=== PATIENT | female | born 1985 | race Caucasian/White ===

== ENCOUNTER 2016-10-17 05:02 | Emergency (ER) | payer SELFPAY ==
[~2016-10-17] VITALS: Ht 154.9 cm; Wt 112.5 kg
[~2016-10-17 05:02] MED LIST: PREN1TAB49 PO
[2016-10-17 05:05] VITALS: Ht 154.9 cm; Wt 112.5 kg
[2016-10-17] MEDS ORDERED: ACETAMINOPHEN 325 MG TAB PO STA (06:21)
[2016-10-17] MEDS ORDERED: FAMOTIDINE 20 MG TAB PO ONE (06:30)
--- NOTE | 2016-10-17 06:38 | ERD ---
ER Documentation Chief Complaint Date/Time DATE: 10/17/16 TIME: 06:36 Chief Complaint AP since 0400 yesterday, N/V. denies diarrhea. 6 week HPI This is a 31-year-old female who presents emergency department for epigastric abdominal pain 2 hours. Patient states she is currently 6 weeks . Patient is a G4, . Patient woke up experiencing epigastric pain denies lower. Pelvic or abdominal pain. No vaginal bleeding. No vaginal discharge or itching. No dysuria, hematuria or difficulty urinating. No fevers or chills. Patient has had nausea however no vomiting or diarrhea. No chest pain , shortness of breath or difficulty breathing. ROS All systems reviewed and are negative except as per history of present illness. Medications Home Meds Active Scripts Famotidine* (Pepcid*) 20 Mg Tablet, 20 MG PO BID for 4 Days, TAB Prov:DAVID PHILLIPS NP 10/17/16 Nitrofurantoin Monohyd Macrocr* (Macrobid*) 100 Mg Capsr, 100 MG PO BID for 5 Days, CAP Prov:DAVID PHILLIPS NP 10/17/16 Reported Medications Vits W-Ca,Fe,Fa(<1MG) () 1 Tab Tablet, PO DAILY 12/24/11 Allergies Allergies: Coded Allergies: No Known Allergy (Verified , 02/20/14) PMhx/Soc History of Surgery: No Anesthesia Reaction: No Hx Neurological Disorder: No Hx Respiratory Disorders: No Hx Cardiac Disorders: No Hx Psychiatric Problems: No Hx Miscellaneous Medical Probl: Yes (gallstones) Hx Alcohol Use: No Hx Substance Use: No Hx Tobacco Use: No Smoking Status: Never smoker Physical Exam Vitals Vital Signs Date Time Temp Pulse Resp B/P Pulse Ox O2 Delivery O2 Flow Rate FiO2 10/17/16 05:05 98.9 89 20 131/83 99 Physical Exam Const: No acute distress, alert Head: Atraumatic Eyes: Normal Conjunctiva ENT: Normal External Ears, Nose and Mouth. Neck: Full range of motion..~ No meningismus. Resp: Clear to auscultation bilaterally. No wheezing, rhonchi or crackles Cardio: Regular rate and rhythm, no murmurs Abd: Soft, non tender, non distended. Normal bowel sounds. No suprapubic tenderness. Negative Gonzalez sign. Skin: No petechiae or rashes Back: No midline or flank tenderness Ext: No cyanosis, or edema Neur: Awake and alert Psych: Normal Mood and Affect Result Diagram: 10/17/16 0645 10/17/16 0645 Results 24 hrs Laboratory Tests Test 10/17/16 06:45 10/17/16 06:55 White Blood Count 7.110^3/ul Red Blood Count 4.3410^6/ul Hemoglobin 12.8g/dl Hematocrit 38.1% Mean Corpuscular Volume 87.8fl Mean Corpuscular Hemoglobin 29.5pg Mean Corpuscular Hemoglobin Concent 33.6g/dl Red Cell Distribution Width 12.7% Platelet Count 06075^3/UL Mean Platelet Volume 11.1fl Neutrophils % 49.3% Lymphocytes % 40.6% Monocytes % 8.6% Eosinophils % 0.8% Basophils % 0.3% Nucleated Red Blood Cells % 0.0/100WBC Neutrophils # 3.510^3/ul Lymphocytes # 2.910^3/ul Monocytes # 0.610^3/ul Eosinophils # 0.110^3/ul Basophils # 0.010^3/ul Nucleated Red Blood Cells # 0.010^3/ul Sodium Level 136mmol/L Potassium Level 3.7mmol/L Chloride Level 109mmol/L Carbon Dioxide Level 20mmol/L Anion Gap 11 Blood Urea Nitrogen 12mg/dl Creatinine 0.49mg/dl Glucose Level 97mg/dl Calcium Level 8.5mg/dl Total Bilirubin 0.1mg/dl Direct Bilirubin 0.00mg/dl Indirect Bilirubin 0.1mg/dl Aspartate Amino Transf (AST/SGOT) 34IU/L Alanine Aminotransferase (ALT/SGPT) 45IU/L Alkaline Phosphatase 89IU/L Total Protein 7.5g/dl Albumin 3.8g/dl Globulin 3.70g/dl Albumin/Globulin Ratio 1.02 Beta HCG, Quantitative 555.2mIU/ml Bedside Urine pH (LAB) 6.5 Bedside Urine Protein (LAB) Negative Bedside Urine Glucose (UA) Negative Bedside Urine Ketones (LAB) Negative Bedside Urine Blood Negative Bedside Urine Nitrite (LAB) Negative Bedside Urine Leukocyte Esterase (L 1+ Current Medications Medications (Trade) Dose Ordered Sig/Lina Route PRN Reason Start Time Stop Time Status Last Admin Dose Admin Acetaminophen (Tylenol Tab) 650 mg ONCE STAT PO 10/17/16 06:21 10/17/16 06:24 DC 10/17/16 06:50 Famotidine (Pepcid) 20 mg ONCE ONCE PO 10/17/16 06:30 10/17/16 06:31 DC 10/17/16 06:50 Procedures/MDM ED COURSE: The patient was stable throughout ED course. I kept the patient and/or family informed of laboratory and diagnostic imaging results throughout the ED course. Laboratory CBC no significant anemia or infection CMP no significant electrolyte amount Beta-hCG 555.2 Type and Rh factor Urine dip 1+ leukocyte [facility] OB ultrasound Patient: CHERRI GARCÍA : 1985 Age: 31 Sex: F MR #: [id number] DOS: 10/17/16620 Ordering MD: DAVID PHILLIPS NP Location: [facility] Room/Bed: PROCEDURE: ULTRASOUND PELVIS CLINICAL INDICATION: 31-year-old female with vaginal bleeding. TECHNIQUE: Multiple sonographic images of the pelvis were obtained utilizing a transabdominal and endovaginal technique. The images were reviewed on a PACS workstation. COMPARISON: None. FINDINGS: The uterus is visualized and measures 10.6 x 6.0 x 6 point a cm. The endometrial echo complex is thickened and measures approximately 25 mm. There is no sonographic evidence for a viable intrauterine gestation. There is a small hypoechoic focus measuring approximately 2 x 2 mm. There is mild free fluid within the cul-de-sac. The right ovary was not visualized. The left ovary has a normal echotexture and measures 2.6 x 1.3 x 1.5 cm. There is flow identified within the left ovary. No adnexal masses are noted. IMPRESSION: 1. Thickened endometrial echo complex with small hypoechoic focus within it without sonographic evidence for a viable intrauterine gestation. This may represent an early gestation or missed . An ectopic cannot be totally excluded. Clinical correlation is necessary. 2. Mild pelvic free fluid. 3. The right ovary was not visualized. Ultrasound gallbladder Patient: CHERRI GARCÍA : 1985 Age: 31 Sex: F MR #: [id number] DOS: 10/17/1638 Ordering MD: DAVID PHILLIPS NP Location: [facility] Room/Bed: PROCEDURE: ULTRASOUND LIMITED ABDOMEN CLINICAL INDICATION: 31-year-old female with abdominal pain. TECHNIQUE: Multiple sonographic of the right upper quadrant of the abdomen were obtained. The images were reviewed on a PACS workstation. COMPARISON: None. FINDINGS: The pancreas is not well visualized secondary to overlying bowel gas. The liver displays normal echogenicity. The liver measures cm in length. No evidence of intrahepatic biliary ductal dilatation is seen. The portal and hepatic veins are unremarkable. The gallbladder contains multiple shadowing stones. The gallbladder wall thickness is within normal limits measuring 0.8 mm. No pericholecystic fluid is seen. The common bile duct measures 4.5 mm and is not dilated. The right kidney displays normal echogenicity. The right kidney measures 10.1 cm in maximal length. No caliectasis or hydronephrosis is seen. No free fluid is seen. IMPRESSION: Cholelithiasis. MDM: This is a 31-year-old female presenting to emergency department for epigastric abdominal pain 2 hours. Patient is currently 6 weeks with last menstrual period 08/31/2016. Currently, no lower abdominal pain, pelvic pain, vaginal bleeding or pelvic cramping. Patient has nausea however no vomiting. No diarrhea. No dysuria or hematuria. Patient given Tylenol and Pepcid while in the ED. Remains afebrile and vital signs are stable. No vaginal bleeding. Gallbladder ultrasound reviewed by radiologist as cholelithiasis. OB ultrasound reviewed by radiologist as Thickened endometrial echo complex with small hypoechoic focus within it without sonographic evidence for a viable intrauterine gestation. This may represent an early gestation or missed . An ectopic cannot be totally excluded. Clinical correlation is necessary. Mild pelvic free fluid. The right ovary was not visualized. Labs are unremarkable. Urine dip shows 1+ leukocyte esterase. Beta-hCG 555.2. Discussed findings with on-call labor is Dr. Castle. We agree that patient is appropriate for outpatient management and can return to ED in 2 days for repeat lab draw and ultrasound. Patient instructed to make appointment with OBGYN for follow up after ED care. Resources provided. Differential diagnosis includes but not limited to GERD, gastritis, peptic ulcer disease, cholelithiasis, ectopic , early , missed and normal . Low suspicion for cholecystitis, bowel obstruction, pyelonephritis and sepsis. Patient is appropriate for outpatient management will be given prescription for Macrobid and Pepcid. Instructed patient to return to ED in 2 days for repeat blood draw and ultrasound. Return sooner for any vaginal bleeding, pelvic pain , fever, chest pain, shortness breath, difficulty breathing, abdominal pain or any new or worsening symptoms. Patient verbalized understanding. All questions answered at discharge. Slovak translation use during this encounter. Departure Diagnosis: Primary Impression: Abdominal pain Abdominal location: epigastric Qualified Code: R10.13 - Epigastric pain Additional Impression: Weeks of gestation: less than 8 weeks Qualified Code: Z3A.01 - Less than 8 weeks gestation of Condition: Stable DAVID PHILLIPS NP Oct 17, 2016 06:38
[2016-10-17 06:54] LABS: ADD SCAN DIFF NO
[2016-10-17 06:56] LABS: URINE BLOOD (Dip) POC Negative (NEGATIVE)
[2016-10-17 07:05] LABS: BASOPHILS % 0.3 % (0.0-2.0); EOSINOPHILS # 0.1 10^3/ul (0.0-0.5); EOSINOPHILS % 0.8 % (0.0-7.0); HEMATOCRIT 38.1 % (37.0-47.0); HEMOGLOBIN 12.8 g/dl (12.0-16.0); LYMPHOCYTES # 2.9 10^3/ul (0.8-2.9); LYMPHOCYTES % 40.6 % (15.0-51.0); MEAN CORPUSCULAR HEMOGLOBIN 29.5 pg (29.0-33.0); MEAN CORPUSCULAR HGB CONC 33.6 g/dl (32.0-37.0); MEAN CORPUSCULAR VOLUME 87.8 fl (82.0-101.0); MEAN PLATELET VOLUME 11.1 fl (7.4-10.4); MONOCYTE # 0.6 10^3/ul (0.3-0.9); MONOCYTES % 8.6 % (0.0-11.0); NEUTROPHIL # 3.5 10^3/ul (1.6-7.5); NEUTROPHILS % 49.3 % (39.0-77.0); PLATELET COUNT 287 10^3/UL (140-415); RED BLOOD COUNT 4.34 10^6/ul (4.20-5.40); RED CELL DISTRIBUTION WIDTH 12.7 % (11.5-14.5); WHITE BLOOD COUNT 7.1 10^3/ul (4.8-10.8)
--- NOTE | 2016-10-17 07:20 | RADRPT ---
PROCEDURE: ULTRASOUND LIMITED ABDOMEN CLINICAL INDICATION: 31-year-old female with abdominal pain. TECHNIQUE: Multiple sonographic of the right upper quadrant of the abdomen were obtained. The imag es were reviewed on a PACS workstation. COMPARISON: None. FINDINGS: The pancreas is not well visualized secondary to overlying bowel gas. The liver displays normal echogenicity. The liver measures cm in length. No evidence of intrahepat ic biliary ductal dilatation is seen. The portal and hepatic veins are unremarkable. The gallbladder contains multiple shadowing stones. The gallbladder wall thickness is within normal limits measuring 0.8 mm. No pericholecystic fluid is seen. The common bile duct measures 4.5 mm and is not dilated. The right kidney displays normal echogenicity. The right kidney measures 10.1 cm in maximal length. No caliectasis or hydronephrosis is seen. No free fluid is seen. IMPRESSION: Cholelithiasis. .Serg Henley MD, MD Date Time Electronically viewed and signed by .Serg Henley MD, on 10/17/2016 07:19 .M/
--- NOTE | 2016-10-17 07:53 | RADRPT ---
PROCEDURE: ULTRASOUND PELVIS CLINICAL INDICATION: 31-year-old female with vaginal bleeding. TECHNIQUE: Multiple sonographic images of the pelvis were obtained utilizing a transabdominal and endovaginal technique. The images were reviewed on a PACS workstation. COMPARISON: None. FINDINGS: The uterus is visualized and measures 10.6 x 6.0 x 6 point a cm. The endometrial echo complex is thi ckened and measures approximately 25 mm. There is no sonographic evidence for a viable intrauterine gestation. There is a small hypoechoic focus measuring approximately 2 x 2 mm. There is mild free fl uid within the cul-de-sac. The right ovary was not visualized. The left ovary has a normal echotext ure and measures 2.6 x 1.3 x 1.5 cm. There is flow identified within the left ovary. No adnexal ma sses are noted. IMPRESSION: 1. Thickened endometrial echo complex with small hypoechoic focus within it without sonographic adonis dence for a viable intrauterine gestation. This may represent an early gestation or missed . An ectopic cannot be totally excluded. Clinical correlation is necessary. 2. Mild pelvic free fluid. 3. The right ovary was not visualized. .Serg Henley MD, Date Time Electronically viewed and signed by .Serg Henley MD, on 10/17/2016 07:53 .Vern/
[2016-10-17 09:17] LABS: ALBUMIN 3.8 g/dl (3.3-4.9); ALBUMIN/GLOBULIN RATIO 1.02; BILIRUBIN,INDIRECT 0.1 mg/dl (0-1.1); BILIRUBIN,TOTAL 0.1 mg/dl (0.2-1.3); CALCIUM 8.5 mg/dl (8.4-10.2); CREATININE 0.49 mg/dl (0.44-1.00); POTASSIUM 3.7 mmol/L (3.5-5.1); TOTAL PROTEIN 7.5 g/dl (6.1-8.1)
[2016-10-17] MEDS ORDERED: NITR-58 PO (10:54)
[2016-10-17] MEDS ORDERED: FAMO-18 PO (10:54)
[2016-10-17 11:11] VITALS: BP 118/64; PULSE 75; RESP 19; TEMP 98.4
== END 2016-10-17 11:12 | disposition home or self-care (01) ==
LOC: FTE 05:02
DX: O26.891 Other specified pregnancy related conditions, first trimester (principal); R10.13 Epigastric pain; R10.2 Pelvic and perineal pain; Z3A.01 Less than 8 weeks gestation of pregnancy
CPT/HCPCS: 36415; 76705; 76801; 76817; 80053; 81003; 84702; 85025; 86900; 86901

== ENCOUNTER 2017-06-16 10:32 | Inpatient (IN) | payer MEDICAID ==
[~2017-06-16] VITALS: Ht 160 cm; Wt 109.3 kg
[~2017-06-16 10:32] MED LIST changes: +FAMO-96 PO; +NITR-58 PO
[2017-06-16 11:21] VITALS: Ht 160 cm; Wt 109.3 kg
[2017-06-16 11:29] VITALS: BP 131/77; RESP 16
[2017-06-16] MEDS ORDERED: OXYTOCIN 30 UNITS/LR 500 ML IV SCH ×3 (11:30)
[2017-06-16] MEDS ORDERED: OXYTOCIN 30 UNITS/LR 500 ML IV PRN (11:30)
[2017-06-16] MEDS ORDERED: METHYLERGONOVINE 0.2 MG INJ IM PRN (11:30)
[2017-06-16] MEDS ORDERED: CARBOPROST 250 MCG INJ IM PRN (11:30)
[2017-06-16] MEDS ORDERED: BUTORPHANOL 2 MG INJ IV PRN (11:30)
[2017-06-16] MEDS ORDERED: LIDOCAINE 1% (MPF) 30 ML INJ INJ PRN (11:30)
[2017-06-16] MEDS ORDERED: MISOPROSTOL 200 MCG TAB PR PRN (11:30)
[2017-06-16] MEDS ORDERED: MINERAL OIL LIGHT 10 ML VIAL TOP ONE (11:30)
[2017-06-16 12:12] LABS: BASOPHILS % 0.2 % (0.0-2.0); EOSINOPHILS % 0.2 % (0.0-7.0); HEMATOCRIT 32.5 % (37.0-47.0); HEMOGLOBIN 10.9 g/dl (12.0-16.0); LYMPHOCYTES # 2.4 10^3/ul (0.8-2.9); LYMPHOCYTES % 25.6 % (15.0-51.0); MEAN CORPUSCULAR HEMOGLOBIN 26.7 pg (29.0-33.0); MEAN CORPUSCULAR HGB CONC 33.5 g/dl (32.0-37.0); MEAN CORPUSCULAR VOLUME 79.5 fl (82.0-101.0); MEAN PLATELET VOLUME 11.5 fl (7.4-10.4); MONOCYTE # 0.6 10^3/ul (0.3-0.9); MONOCYTES % 6.5 % (0.0-11.0); NEUTROPHIL # 6.2 10^3/ul (1.6-7.5); NEUTROPHILS % 67.2 % (39.0-77.0); PLATELET COUNT 302 10^3/UL (140-415); RED BLOOD COUNT 4.09 10^6/ul (4.20-5.40); WHITE BLOOD COUNT 9.2 10^3/ul (4.8-10.8)
[2017-06-16 12:36] LABS: INR 0.92; PROTIME 12.4 Sec (11.9-14.9)
[2017-06-16] MEDS: LACTATED RINGER'S 1,000 ML IV SCH ×3 (12:41→20:20)
--- NOTE | 2017-06-16 17:27 | HP ---
Date/Time of Note Date/Time of Note DATE: 06/16/17 TIME: 17:13 OB - History Hx of Present Free Text/Dictation 32 years old female admitted to the hospital with referral from NST unit due to low JACQUES 6.8 at 39 weeks and 5 days recommended delivery which required labor augmentation was discussed with her questions answered and her labor would be augmented with Pitocin IV infusion drip, a pelvic examination on admission cervix 2-3 cm dilated 40% effaced vertex at -2 station with mild contractions every 1-3 minutes. Category 1 heart tracing Chief Complaint: Referred from NST because of low JACQUES mild contraction for labor augmentatio Estimated Due Date: Jun 18, 2017 : 4 Para: 3 Care: Good Care Ultrasounds: Normal mid trimester US Obstetrical Complications: None Medical Complications: None Past Family/Social History * Past Medical, Surgical, Family and Obstetric Histories reviewed from chart. Rubella: immune RPR/VDRL: Negative GBS Status: Negative HBsAG: Negative OB Admission Exam Vital Signs Vital Signs Vital Signs Date Time Temp Pulse Resp B/P Pulse Ox O2 Delivery O2 Flow Rate FiO2 06/16/17 11:29 97.6 16 131/77 Room Air Physical Exam HEENT: WNL Heart: Rhythm Normal Lungs: Clear, Equal Abdomen: WNL Extremities: Normal Reflexes: Normal Cervical Dilatation: 3cm Effacement: Other (40% effacement) Station: -2 Membranes: Intact Amniotic Fluid: Other (Intact membrane) Heart Rate: 130's Accelerations: Accelerations Present Decelerations: No Decelerations Varibility: Moderate Contractions on Admission: >10 Minutes Apart Intensity: Mild Last 72 hours Lab Results CBC & BMP 06/16/17 11:40 OB Assessment/Plan Reason for admission: other (39 weeks 5 days , referred from NST due to low JACQUES very early labor required labor augmentation) ADRIENNE GREENE MD Jun 16, 2017 17:24
[2017-06-16] MEDS ORDERED: ONDANSETRON 4 MG INJ IV STA (20:05)
[2017-06-16] MEDS ORDERED: FENTAnyl 2MCG/ML-ROPIV 0.2% 100 ML ONE (20:20)
[2017-06-16] MEDS ORDERED: CITRIC ACID/SODIUM CITRATE 15 ML CUP PO ONE (20:30)
[2017-06-16] MEDS ORDERED: NALOXONE (0.4 MG/ML) INJ IV PRN (21:30)
[2017-06-16] MEDS ORDERED: FENTAnyl 2MCG/ML-ROPIV 0.2% 100 ML BAG EPI SCH (21:30)
[2017-06-16] MEDS ORDERED: DIPHENHYDRAMINE 50 MG INJ IV PRN (21:30)
[2017-06-16] MEDS ORDERED: TRIMETHOBENZAMIDE 100 MG/ML VIAL IM PRN (21:30)
[2017-06-16] MEDS ORDERED: ONDANSETRON 4 MG INJ IV PRN (21:30)
[2017-06-17] MEDS: LACTATED RINGER'S 1,000 ML IV SCH (01:06)
[2017-06-17] MEDS: LACTATED RINGER'S 1,000 ML IV* SCH ×2 (01:44→05:18)
--- NOTE | 2017-06-17 01:44 | LDN ---
Date/Time of Note Date/Time of Note DATE: 06/17/17 TIME: 01:43 Delivery Summary Called for delivery due to nonavailability of primary OB attending. Patient was complete and pushing Weeks of Gestation Full-term Placenta Delivered: Spontaneously Meconium: none Episiotomy: No Perineal laceration: 0 Laceration repair: No perineal laceration. Anesthesia type: Epidural Sponge & Needle done & correct: Yes All needle counts correct: Yes Any foreign bodies felt in the: No Problems: Infant Delivery Information Sex Infant Sex: male Apgars 1 Minute: 9 5 Minute: 9 Suctioning Nose & mouth suctioned at yomi: Yes Delee suction performed: Yes Umbilical Cord Umbilical cord with: 3 Vessels Cord presentations: no nuchal cord Cord Blood was obtained: Yes MANUEL GOLDEN MD Jun 17, 2017 01:44
[2017-06-17] MEDS ORDERED: ACETAMINOPHEN 325 MG TAB PO PRN (02:00)
[2017-06-17] MEDS ORDERED: LANOLIN 7 GM TUBE TOP PRN (02:00)
[2017-06-17] MEDS ORDERED: DIPHENHYDRAMINE 25 MG CAP PO PRN (02:00)
[2017-06-17] MEDS ORDERED: CARBOPROST 250 MCG INJ IM PRN (02:00)
[2017-06-17] MEDS ORDERED: HYDROCODONE/APAP (5/325) TAB PO PRN (02:00)
[2017-06-17] MEDS ORDERED: MISOPROSTOL 200 MCG TAB PR PRN (02:00)
[2017-06-17] MEDS ORDERED: ZOLPIDEM 5 MG TAB PO PRN (02:00)
[2017-06-17] MEDS ORDERED: OXYTOCIN 30 UNITS/LR 500 ML IV PRN (02:00)
[2017-06-17] MEDS ORDERED: METHYLERGONOVINE 0.2 MG INJ IM PRN (02:00)
[2017-06-17] MEDS ORDERED: ONDANSETRON 4 MG INJ IV PRN (02:00)
[2017-06-17] MEDS: IBUPROFEN 600 MG TAB PO SCH ×4 (05:34→23:58)
[2017-06-17] MEDS: WITCH HAZEL/GLYCERIN PAD PR PRN ×2 (05:35→05:37)
[2017-06-17 08:00] VITALS: BP 120/73
[2017-06-17] MEDS: SENNA/DOCUSATE NA (8.6MG/50MG) TAB PO SCH ×2 (08:39→21:28)
[2017-06-17] MEDS: NITROFURANTOIN (SR) 100 MG CAP PO SCH ×2 (08:39→21:27)
[2017-06-17 09:27] LABS: HEMATOCRIT 32.6 % (37.0-47.0)
[2017-06-17 12:21] VITALS: BP 118/62; RESP 18
[2017-06-17 13:28] LABS: ADD UMIC YES; UR ASCORBIC ACID NEGATIVE (NEGATIVE); UR BACTERIA MODERATE /HPF (NONE SEEN); UR BILIRUBIN (Dip) NEGATIVE (NEGATIVE); UR BLOOD (Dip) 3+ mg/dL (NEGATIVE); UR CLARITY CLOUDY (CLEAR); UR COLOR RED (YELLOW); UR GLUCOSE (Dip) NEGATIVE (NEGATIVE); UR KETONES (Dip) TRACE mg/dL (NEGATIVE); UR LEUKOCYTE ESTERASE (Dip) 2+ Leu/ul (NEGATIVE); UR MUCUS MODERATE /HPF (NONE SEEN); UR NITRITE (Dip) NEGATIVE (NEGATIVE); UR RBC > 182 /HPF (0-5); UR SPECIFIC GRAVITY (Dip) 1.014 (1.003-1.030); UR SQUAMOUS EPITHELIAL CELL FEW /HPF (FEW); UR TOTAL PROTEIN (Dip) 2+ mg/dl (NEGATIVE); UR UROBILINOGEN (Dip) 2+ mg/dL (NEGATIVE)
[2017-06-17 15:49] VITALS: BP 115/62; RESP 20
[2017-06-17 20:00] VITALS: BP 114/58; PULSE 74; RESP 18
--- NOTE | 2017-06-17 23:16 | NSTRPT ---
NST Information Datetime Report Generated by CPN: 06/17/2017 23:16 Datetime: 06/16/2017 09:30 NST Information EGA: 39.5 Test Number: 2 Time on Monitor: 06/16/2017 09:46 Time off Monitor: 06/16/2017 10:16 NST Duration (Min): 30 Reason for NST: Oligohydramnios Test and Monitor Explained: Monitor Explained; Test Explained; Verbalized Understanding; Breastfee ding Info Given Pulse: 100 Resp: 18 SBP: 132 DBP: 76 Test Evaluation NST Interventions: None Patient States Movement: Present Contraction Frequency: NONE FHR Baseline : 140 Variability: Moderate 6-25bpm Accelerations: 15X15 Decelerations: None FHR Category: Category I NST Results: Reactive Comments: PT TO U/S JACQUES 6.2cm. CEPHALIC. Electronically Signed By E-Signature: with User ID: [id number] Datetime: 06/09/2017 09:42 NST Information EGA: 38.5 Datetime: 06/09/2017 09:40 NST Duration (Min): 30
[2017-06-18] VITALS: BP 111/68; PULSE 71; RESP 18
[2017-06-18 04:00] VITALS: BP 117/68; PULSE 94; RESP 18
[2017-06-18] MEDS: IBUPROFEN 600 MG TAB PO SCH ×4 (06:13→23:34)
[2017-06-18 08:00] VITALS: BP 118/74; PULSE 66; RESP 18
[2017-06-18] MEDS ORDERED: INFLUENZA VIRUS VACCINE 0.5 ML (DISPENSING) IM* ONE (09:00)
[2017-06-18] MEDS: NITROFURANTOIN (SR) 100 MG CAP PO SCH ×2 (09:14→20:42)
[2017-06-18] MEDS: SENNA/DOCUSATE NA (8.6MG/50MG) TAB PO SCH ×2 (09:15→20:42)
--- NOTE | 2017-06-18 14:09 | QN ---
Documentation Comment No complaint No complaint Afebrile VSS Fundus firm Lochia scant PPD ! Stable Continue present care. LUISA NEWMAN MD Jun 18, 2017 14:09
[2017-06-18 16:27] VITALS: BP_SYST 72; PULSE 67; RESP 18
[2017-06-18 20:00] VITALS: BP 119/65; PULSE 87; RESP 18
[2017-06-19 04:00] VITALS: BP 119/79; PULSE 80; RESP 17
[2017-06-19] MEDS: IBUPROFEN 600 MG TAB PO SCH ×2 (05:50→12:14)
[2017-06-19 08:00] VITALS: BP 118/71; PULSE 82; RESP 18
[2017-06-19] MEDS: NITROFURANTOIN (SR) 100 MG CAP PO SCH (08:28)
[2017-06-19] MEDS: SENNA/DOCUSATE NA (8.6MG/50MG) TAB PO SCH (08:29)
--- NOTE | 2017-06-19 12:20 | DS ---
Date/Time of Note Date/Time of Note DATE: 06/19/17 TIME: 12:20 Obstetrical Discharge Record Final Diagnosis Final Diagnosis: Term delivered Vaginal Delivery Obstetrical Delivery: Spontaneous Condition on Discharge Physical Assessment Voiding: Yes Bowel Movement: Yes Breast: Soft, non-tender, Filling Fundus: Firm Calf Tenderness: No Patient Condition: Stable LUISA NEWMAN MD Jun 19, 2017 12:20
== END 2017-06-19 15:19 | disposition home or self-care (01) | DRG 775 ==
LOC: L-D 10:32 → PP1 06-17 03:10 → EDSTATUS 06-21 10:36
PROVIDERS: ADMIT Obstetrics & Gynecology; ATTEND Obstetrics & Gynecology
PROC: 10E0XZZ Delivery of Products of Conception, External Approach (ICD-10-PCS; principal; 2017-06-17)
DX: O80 Encounter for full-term uncomplicated delivery (principal); Z37.0 Single live birth; Z3A.39 39 weeks gestation of pregnancy
CPT/HCPCS: 62319; 81001; 85014; 85018; 85025; 85610; 85730; 86592; 86900; 86901; 90686; J2210; J2405; J2590; J3010; J7120